=== PATIENT | male | born 1980 | race Caucasian/White ===

== ENCOUNTER 2019-03-10 00:58 | Emergency (ER) | payer SELFPAY ==
[2019-03-10 01:08] VITALS: BP 156/87; PULSE 91; RESP 14; TEMP 37.1; O2SAT 98
== END 2019-03-10 01:21 | disposition left against medical advice (07) ==
PROVIDERS: Emergency Provider Emergency Medicine
DX: Z53.21 Procedure and treatment not carried out due to patient leaving prior to being seen by health care provider (principal)
CPT/HCPCS: 99283

== ENCOUNTER 2021-10-02 06:10 | Emergency (ER) | payer OTHER, SELFPAY ==
[2021-10-02 06:10] VITALS: BP 166/91; PULSE 72; RESP 18; TEMP 36.6; O2SAT 99
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
[2021-10-02] MEDS: LIDO 1%/SOD BICARB 8.4% (10ML) 10 ML SYRINGE INJ (07:16)
[2021-10-02] MEDS: BACITRACIN OINT 0.9 GM PCKT 1 APPLIC TOP (07:16)
--- NOTE | 2021-10-02 07:24 | PC.NURSE ---
A padded metal splint was applied to left 3rd finger after suturing and bacitracin and bandaid appled.DR Villareal noted the splint.
== END 2021-10-02 07:10 | disposition home or self-care (01) ==
PROVIDERS: Emergency Provider Emergency Medicine
DX: S61.213A Laceration without foreign body of left middle finger without damage to nail, initial encounter (principal); M20.022 Boutonniere deformity of left finger(s); W26.0XXA Contact with knife, initial encounter; Y93.G1 Activity, food preparation and clean up; Y99.0 Civilian activity done for income or pay
CPT/HCPCS: 12001; 99282; 99283

== ENCOUNTER 2021-10-05 14:27 | Emergency (ER) | payer OTHER, SELFPAY ==
[2021-10-05 14:34] VITALS: BP 152/80; PULSE 89; RESP 16; TEMP 36.6; O2SAT 100
[2021-10-05] MEDS: TRIMETH/SULFA 160/800 (DS) TABLET 1 TAB PO (15:45)
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
== END 2021-10-05 15:48 | disposition home or self-care (01) ==
PROVIDERS: Emergency Provider Nurse Practitioner Critical Care Medicine
DX: L03.114 Cellulitis of left upper limb (principal)
CPT/HCPCS: 87070; 87075; 87077; 87186; 87205; 99283

== ENCOUNTER → 2021-10-08 15:48 | Outpatient (CLI) | payer OTHER, SELFPAY ==
[2021-10-08 16:43] LABS: Add Manual Diff / Slide Review NO; Basophils Absolute Auto 100 /uL (0-100); Basophils Percent Auto 1.2 % (0-2); Eosinophils Absolute Auto 100 /uL (0-450); Eosinophils Percent Auto 1.6 % (2-4); Hemoglobin 15.6 g/dL (13.5-17.5); Lymphocytes Absolute Auto 3000 /uL (1100-4500); Mean Corpuscular HGB Conc 35.6 % (30-36); Mean Corpuscular Hemoglobin 30.1 PG (26-34); Mean Corpuscular Volume 84.5 fL (80-100); Monocytes Absolute Auto 700 /uL (0-900); Monocytes Percent Auto 8.7 % (3-14); Neutrophils Absolute Auto 4200 /uL (1500-7000); Neutrophils Percent Auto 51.5 % (50-75); Platelet Count 290 X10^3/uL (150-400); Red Cell Distribution Width 12.2 % (11.6-14.8); White Blood Cell Count 8.1 X10^3/uL (4.5-11.0)
== END ==
PROVIDERS: Referring Provider Orthopaedic Surgery; Visit Provider Orthopaedic Surgery
DX: Z01.812 Encounter for preprocedural laboratory examination (principal)
CPT/HCPCS: 36415; 85025

== ENCOUNTER 2024-01-02 18:37 | Emergency (ER) | payer SELFPAY ==
[2024-01-02 18:39] VITALS: BP 154/98; PULSE 62; RESP 16; TEMP 36.2; O2SAT 98; BMI 27.1
--- NOTE | 2024-01-02 18:44 | DI.RAD.S_ITS ---
PROCEDURE: XR KNEE LT 3V INDICATIONS: Right knee pain; remote history of injury TECHNIQUE: 3 views of the knee were acquired. COMPARISON: None. FINDINGS: Bones: No fractures or dislocations. 6.1 x 4.1 cm lucency within the medial femoral condyle. Thinning of the cortex is present. There are areas of with be ossification extending beyond the cortex. Soft tissues: Moderate joint effusion. No suspicious soft tissue calcifications. IMPRESSION: New lytic lesion within the medial femoral condyle as above. No priors are available for comparison. Given areas of extra osseous calcification as described above, small areas of superimposed pathologic fracture within the cortex cannot be definitively excluded. Further evaluation nonemergent basis with MRI and orthopedic consult is recommended. Dictated by: Adalgisa Alanis M.D. on 01/02/2024 at 19:16 Approved by: Adalgisa Alanis M.D. on 01/02/2024 at 19:20
[2024-01-02 19:25] VITALS: PULSE 78
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
== END 2024-01-02 20:40 | disposition home or self-care (01) ==
PROVIDERS: Emergency Provider Emergency Medicine
DX: M89.9 Disorder of bone, unspecified (principal)
CPT/HCPCS: 73562; 99281; 99283

== ENCOUNTER 2024-01-05 14:05 | Emergency (ER) | payer SELFPAY ==
--- NOTE | 2024-01-05 14:32 | DI.MRI.S_ITS ---
PROCEDURE: MR KNEE RT WO/W CON INDICATIONS: right knee lytic lesion on xray 01/02/24, MR per Dr Price TECHNIQUE: Noncontrast sagittal PD fast spin echo and T2 fast spin echo with fat saturation, sagittal 3-D FLASH with fat saturation; coronal T1 spin echo and PD fast spin echo with fat saturation, and axial T1 spin echo and PD fast spin echo with fat saturation through the knee. Post-contrast axial, coronal, and sagittal T1 spin echo with fat saturation through the knee. COMPARISON: [facility], CR, XR KNEE LT 3V, 01/02/2024, 18:49. FINDINGS: Image quality: Excellent. Menisci: The medial and lateral menisci demonstrate normal morphology and internal signal. The meniscal root ligaments appear intact. Cruciate ligaments: The anterior and posterior cruciate ligaments appear intact. Medial structures: The medial collateral ligament appears mildly thickened near its femoral insertion. Visualized portions of the pes anserinus tendons appear normal. No abnormal bursal fluid. Lateral structures: The lateral collateral ligament, long and short heads of the biceps femoris tendon appear intact. The popliteus tendon appears normal. Iliotibial band appears normal. Anterior structures: The quadriceps and patellar tendons appear intact. Patellar alignment is normal. No femoral trochlear dysplasia or ventral trochlear prominence. No edema in the infrapatellar fat pad. Bones and cartilage: Large lobulated and septated T2 hyperintense and T1 I so to hypointense lesion involving medullary space of medial femoral condyle with erosion/destruction involving anterior and medial cortex of medial femoral condyle and lateral extension to the intercondylar region measures up to 5.5 x 6.4 x 7.1 cm in its largest AP, transverse and craniocaudal dimensions series 6, image 19 and series 8 image 28. There is predominantly peripheral and septal enhancement throughout this lesion, with possible enhancing nodule involving medial periphery of this lesion measures 1 cm in size series 16, image 12. There is marrow edema seen in distal femur predominantly involving medial femoral condyle. No pathologic fracture. No other area of marrow signal abnormality or abnormal enhancement. Articulating cartilages are intact. Joint space: There is small to moderate knee joint fluid. There is a Barney's cyst measures 4.5 x 1.5 x 4.8 cm in size. Normal appearing synovial plicae are incidentally noted. No suspicious soft tissue enhancement. IMPRESSION: 1. Large lobulated and septated heterogeneously T2 hyperintense and T1 isointense to hypointense lesion involving medullary space of medial femoral condyle as described above. Destruction of anterior and medial cortex of medial femoral condyle is noted. Predominantly peripheral and septal contrast enhancement is noted within this lesion with suggestion of a 1 cm enhancing nodule in medial periphery of this mass. Finding is suggestive of is a large cystic mass of indeterminate etiology. No pathologic fracture. No other area of abnormal intraosseous enhancement. 2. No evidence of internal derangement. 3. Small to moderate joint effusion and a Barney's cyst as above. No gross loose bodies. No enhancing soft tissue mass is seen. Dictated by: Pj Maloney M.D. on 01/05/2024 at 16:16 Approved by: Pj Maloney M.D. on 01/05/2024 at 16:28
[2024-01-05 14:35] VITALS: BP 152/100; PULSE 78; RESP 17; TEMP 36.6; O2SAT 98; BMI 26.4
--- NOTE | 2024-01-05 16:12 | ED.LOWEXIN ---
HPI - Extremity Injury (Lower) <Rachel Vasquez PA-C - Last Filed: 01/05/24 18:12> General Chief Complaint: Extremity Injury, Lower Stated Complaint: Knee injury follow-up Time Seen by Provider: 01/05/24 14:06 Source: patient Mode of arrival: Ambulatory History of Present Illness HPI Narrative: Patient is a 43-year-old man with history of Hepatitis C who presents with acute on chronic right knee pain. He was seen in the emergency room on 01/02/2024 where x-ray was done that showed a 6 x 4 cm lucency within the medial femoral condyle. Dr. Chavez spoke with Dr. Price on 01/01 who recommended MRI with and without contrast for further evaluation. It was after hours and no MRI was available. He was referred to Orthopedics for further assessment. He did follow up with Orthopedics but because he has no insurance, was unable to obtain the MRI and came back to the ER today. Patient reports no new symptoms since seen on 01/01. Related Data Home Medications Medication Instructions Recorded Confirmed ibuprofen 600 mg tablet 600 mg PO Q6H PRN Pain (Scale 01/05/24 01/05/24 Score 7-10) Allergies Allergy/AdvReac Type Severity Reaction Status Date / Time No Known Drug Allergies Allergy Verified 01/05/24 14:39 Review of Systems <Rachel Vasquez PA-C - Last Filed: 01/05/24 18:12> Review of Systems ROS Unobtainable: All systems reviewed & are unremarkable except as noted in HPI and below Patient History <Rachel Vasquez PA-C - Last Filed: 01/05/24 18:12> Medical History Hepatitis C Cellulitis of right arm Burn of right upper extremity Social History Smoking Status: Unknown if ever smoked Smoking Status: Unknown if ever smoked alcohol intake frequency: 0-2 drinks per day Substance Use Type: marijuana Exam <Rachel Vasquez PA-C - Last Filed: 01/05/24 18:12> Narrative Exam Narrative: GENERAL: 43 year old patient appears stated age. Well-developed patient, in no acute distress. NEURO: AOx3. HEAD: Atraumatic. Normocephalic. EYES: Pupils equal round and reactive. Extraocular motions intact. No scleral icterus. No injection or drainage. ENT: Nose without bleeding or purulent drainage. RESPIRATORY: No increased work of breathing EXTREMITIES: Mild tenderness to the medial right knee. No significant hip pain. Neurovascularly intact. SKIN: No rash or erythema of visible areas Initial Vital Signs Initial Vital Signs: Vital Signs Temperature 98 F 01/05/24 14:35 Pulse Rate 78 01/05/24 14:35 Respiratory Rate 17 01/05/24 14:35 Blood Pressure 152/100 H 01/05/24 14:35 Pulse Oximetry 98 01/05/24 14:35 Oxygen Delivery Method Room Air 01/05/24 14:35 <Chriss Villareal DO - Last Filed: 01/05/24 18:20> Initial Vital Signs Initial Vital Signs: Vital Signs Temperature 98 F 01/05/24 14:35 Pulse Rate 78 01/05/24 14:35 Respiratory Rate 17 01/05/24 14:35 Blood Pressure 152/100 H 01/05/24 14:35 Pulse Oximetry 98 01/05/24 14:35 Oxygen Delivery Method Room Air 01/05/24 14:35 Course <Rachel Vasquez PA-C - Last Filed: 01/05/24 18:12> Orders Ordered: ED Orders 01/05/24 14:32 MR knee RT wo/w con Stat 01/05/24 14:44 Consult to [facility] Placement Specialist Stat Consultations Consultation #1: Spoke with Dr. Loo who recommends having musculoskeletal radiologist look at MRI images and advised. This is done as outpatient. Have patient f/u with ortho clinic. Vital Signs Vital signs: Vital Signs - 8 hr 01/05/24 14:35 01/05/24 17:02 Temperature 98 F Pulse Rate 78 66 Respiratory Rate 17 16 Blood Pressure 152/100 H 155/93 H Pulse Oximetry 98 100 Oxygen Delivery Method Room Air Room Air <Chriss Villareal DO - Last Filed: 01/05/24 18:20> Orders Ordered: ED Orders 01/05/24 14:32 MR knee RT wo/w con Stat 01/05/24 14:44 Consult to [facility] [place] [place] Placement Specialist Stat Vital Signs Vital signs: Vital Signs - 8 hr 01/05/24 14:35 01/05/24 17:02 Temperature 98 F Pulse Rate 78 66 Respiratory Rate 17 16 Blood Pressure 152/100 H 155/93 H Pulse Oximetry 98 100 Oxygen Delivery Method Room Air Room Air MDM - Extremity Injury (Lower) <Rachel Vasquez PA-C - Last Filed: 01/05/24 18:12> Imaging Data MRI knee: Radiologist's Impression: PROCEDURE: MR KNEE RT WO/W CON INDICATIONS: right knee lytic lesion on xray 01/02/24, MR per Dr Price TECHNIQUE: Noncontrast sagittal PD fast spin echo and T2 fast spin echo with fat saturation, sagittal 3-D FLASH with fat saturation; coronal T1 spin echo and PD fast spin echo with fat saturation, and axial T1 spin echo and PD fast spin echo with fat saturation through the knee. Post-contrast axial, coronal, and sagittal T1 spin echo with fat saturation through the knee. COMPARISON: [facility], CR, XR KNEE LT 3V, 01/02/2024, 18:49. FINDINGS: Image quality: Excellent. Menisci: The medial and lateral menisci demonstrate normal morphology and internal signal. The meniscal root ligaments appear intact. Cruciate ligaments: The anterior and posterior cruciate ligaments appear intact. Medial structures: The medial collateral ligament appears mildly thickened near its femoral insertion. Visualized portions of the pes anserinus tendons appear normal. No abnormal bursal fluid. Lateral structures: The lateral collateral ligament, long and short heads of the biceps femoris tendon appear intact. The popliteus tendon appears normal. Iliotibial band appears normal. Anterior structures: The quadriceps and patellar tendons appear intact. Patellar alignment is normal. No femoral trochlear dysplasia or ventral trochlear prominence. No edema in the infrapatellar fat pad. Bones and cartilage: Large lobulated and septated T2 hyperintense and T1 I so to hypointense lesion involving medullary space of medial femoral condyle with erosion/destruction involving anterior and medial cortex of medial femoral condyle and lateral extension to the intercondylar region measures up to 5.5 x 6.4 x 7.1 cm in its largest AP, transverse and craniocaudal dimensions series 6, image 19 and series 8 image 28. There is predominantly peripheral and septal enhancement throughout this lesion, with possible enhancing nodule involving medial periphery of this lesion measures 1 cm in size series 16, image 12. There is marrow edema seen in distal femur predominantly involving medial femoral condyle. No pathologic fracture. No other area of marrow signal abnormality or abnormal enhancement. Articulating cartilages are intact. Joint space: There is small to moderate knee joint fluid. There is a Barney's cyst measures 4.5 x 1.5 x 4.8 cm in size. Normal appearing synovial plicae are incidentally noted. No suspicious soft tissue enhancement. IMPRESSION: 1. Large lobulated and septated heterogeneously T2 hyperintense and T1 isointense to hypointense lesion involving medullary space of medial femoral condyle as described above. Destruction of anterior and medial cortex of medial femoral condyle is noted. Predominantly peripheral and septal contrast enhancement is noted within this lesion with suggestion of a 1 cm enhancing nodule in medial periphery of this mass. Finding is suggestive of is a large cystic mass of indeterminate etiology. No pathologic fracture. No other area of abnormal intraosseous enhancement. 2. No evidence of internal derangement. 3. Small to moderate joint effusion and a Barney's cyst as above. No gross loose bodies. No enhancing soft tissue mass is seen. Dictated by: Pj Maloney M.D. on 01/05/2024 at 16:16 Approved by: Pj Maloney M.D. on 01/05/2024 at 16:28 MDM Narrative Medical decision making narrative: Multiple etiologies for patient's symptoms considered including, but not limited to: Bone cyst versus malignancy Patient unable to access MRI through outpatient clinic and return to the emergency room for assessment today. Discussed case with Dr. Villareal who agrees that we should obtain MRI. MRI obtained. I spoke with Dr. Loo regarding the results; he recommended that the ortho clinic send the MRI to for specialist interpretation and have patient follow up in ortho clinic. There are no specific precautions per Dr. Loo. Discussed this plan with the patient. Patient was also seen by PAN SHOVER while in the emergency room to discuss options for obtaining health insurance. Patient states understanding of the importance of obtaining follow-up. PAN SHOVER we will check in with him tomorrow regarding insurance. Patient reports overall his pain is a little better recently then over the past several months. He does not need any pain medications. Work note given. Patient's symptoms improved over duration of stay with above-stated therapies. Findings and discharge diagnosis discussed with patient/family followed by verbalization of understanding Return precautions discussed with patient/family whom verbalize understanding of diagnosis and plan Discharge Plan Departure Patient Disposition: Home Clinical Impression: Lytic bone lesion of right femur Instructions: DI for Knee Pain Activity Restrictions/Additional Instructions: The radiology report for your knee MRI today is relatively inconclusive. The orthopedist wants to send the images to the [facility] so specialist radiologistcan give their opinion prior to deciding the next steps. You should call [facility] to schedule an appointment to follow up with them regarding the interpretation of the MRI results. When you call, you should explain the situation to the entry level receptionist and say that you want to come in after they have more information about the MRI results. You can apply for insurance through the state via Internet or calling them. They are quite helpful on the phone and can help you answer your questions and get she signed up. Once you get insurance, you can call the hospital to set up a primary care provider who can help navigate the situation as well. *What to do: *Please continue to take your regular medications as directed. [ ] New medication prescriptions sent to your pharmacy: [ ] [ ] New medication written as a paper prescription [x] No new medications given *Please follow up with your primary care provider in 2-3 days, call for an appointment. Let them know you were seen in the Emergency Department and that we ask that you be seen in follow up. We will electronically transmit a record of today's note if your PCP is in our system *If you do not have a primary care provider please contact the [facility] Resource line at [phone]. They will ask some questions about your medical history and help get you set up with a doctor in the community. *Return to Emergency Department if you should have any new, worsening or concerning symptoms, such as [fever greater than 101 F, shaking chills, worsening pain, persistent vomiting or other concerning symptoms]. Prescriptions: No Action ibuprofen 600 mg Tablet 600 mg PO Q6H PRN (Reason: Pain (Scale Score 7-10)) Referrals: [facility] [Provider Group] Miscellaneous,Doctor, MD [Primary Care Provider] - Stand Alone Forms: Patient Portal/API, Work Release Note ED Sign-out <Chriss Villareal DO - Last Filed: 01/05/24 18:20> [facility]: Dr Villareal Co-Sign Statement: I was available for consultation during this patient's emergency department visit. This chart is signed by myself for administrative purposes only. I did not have direct contact with this patient during this visit. They were seen independently by the APC.
[2024-01-05 17:02] VITALS: BP 155/93; PULSE 66; RESP 16; O2SAT 100
--- NOTE | 2024-01-05 17:06 | CM.SWNOTE ---
Addendum entered by Madeline Mcclain 01/11/24 19:09: BAKER BENCH calls patient regarding insurance and patient states that he signed up for Medicaid Coordinated care. Patient endorses [facility] is reviewing his scans and he is waiting to hear back from them. BAKER BENCH informs registration of patient's new insurance to add to patient's EMR. LA Mendoza Addendum entered by Madeline Mcclain 01/06/24 17:04: BAKER BENCH calls patient for follow up call regarding insurance. Patient states he did not set up insurance yesterday and plans to do so tomorrow. BAKER BENCH arranges to call patient on Tuesday to check in on his insurance status and encourages patient to call ortho on Tuesday as well. Plan: patient to f/u with patient further on Tuesday via phone call. LA Mendoza Original Note: ED BAKER BENCH Note Patient is 43 y/o male who presents to ED today due to concern for chronic knee pain, patient had similar presentation to ED on 01/02/24 and was told to f/u with ortho because patient could not get in for MRI from ED on that day. Patient does not have PCP or insurance. It is reported that patient went to ortho and they stated that the MRI would be quite a significant out of pocket expense so patient returned to ED. ED provider orders MRI for patient. BAKER BENCH enters room to meet with patient, patient endorses that he does not have insurance and does not recall the last time he's had insurance or a PCP. Patient endorses he has not made a lot of money this year and will be starting a new job soon. BAKER BENCH encourages patient to apply for state insurance. Patient attempts to do so in ED but patient endorses issues with his phone. Patient endorses plan to apply for insurance this afternoon. Patient endorses he has good supports, he lives in [place] and is hopeful that his new job will have insurance. BAKER BENCH offers to set patient up with PCP and patient denies concern of need for assistance with this. BAKER BENCH encourages patient to fill out jean marie care application and to apply for insurance. BAKER BENCH endorses that BAKER BENCH can call patient tomorrow to f/u on patient's progress in signing up for insurance. Per patient's MRI results today, ED provider recommends that patient f/u with [facility] to schedule appt. Patient's MRI results were inconclusive and being sent to for further review. Plan: patient to d/c to home upon medical clearance. BAKER BENCH to f/u with patient via phone tomorrow regarding patient's applying for insurance and seeking ortho f/u. LA Mendoza
== END 2024-01-05 17:04 | disposition home or self-care (01) ==
PROVIDERS: Emergency Provider Physician Assistant
DX: M89.9 Disorder of bone, unspecified (principal); M25.461 Effusion, right knee
CPT/HCPCS: 73723; 99281; 99283; A9579

== ENCOUNTER 2024-02-09 05:21 | Emergency (ER) | payer OTHER, MEDICAID, SELFPAY ==
[2024-02-09] VITALS (10 sets, daily range): BP systolic 158–179; BP diastolic 95–107; PULSE 59–85; RESP 9–15; TEMP 36.3; O2SAT 97–100; BMI 27.1
--- NOTE | 2024-02-09 05:42 | ED.GENADULT ---
HPI - General Adult <Chikis Guerrero MD - Last Filed: 02/10/24 03:29> General Chief complaint: Dizziness Stated complaint: dizzy spell Time Seen by Provider: 02/09/24 05:41 History of Present Illness HPI narrative: 43-year-old gentleman with a history of hepatitis-C, alcohol use disorder recently diagnosed with a lytic/cystic lesion in the right medial epicondyle of his femur concerning for a cancer versus cystic lesion comes in with episodes of intermittent vertigo this morning. He was seen a month ago with complaints of acute on chronic knee pain increasing limping and fullness over the medial aspect of his right knee. X-rays showed significant abnormality, he was referred to orthopedics eventually came back to the ER for an MRI which confirms abnormalities. Apparently his case was referred to Manjula ordaz, orthopedic oncology and he was told he would ?hear from them?. This was 3 weeks ago. He is continuing to work he notes that he will gain and lose weight fairly rapidly but depending on how much alcohol he is drinking and how well he is eating, he notes that he is relatively active otherwise. He is employed full-time currently. He describes relatively poor sleep on the evening of February 06 related to knee pain. On the day of the he states that he had a number of ?spacey? episodes with a sensation of time loss multiple times throughout the day. Who was concerning enough he mentioned it to coworkers who did not notice abnormalities. He notes that he did drink less on the day of the . States that he slept fairly well last night when his alarm clock when off at 4:30 a.m. he rolled over had an episode of significant vertigo that seemed to resolve quickly. He then had episodes when he stood up, as he looked down as he lift up see looked down the street while he was walking to work. None of these were persistent and he has not currently complaining of any evoked vertigo. He is concerned that he may be having stroke or that there may be more to the probable cancer diagnosis involving the right femur. He does not carry a diagnosis of hypertension but notes that his blood pressures are frequently high when he is in the emergency department. He does have a blood pressure monitor at home. He has not reporting headaches, visual changes, other focal neurologic concerns. No hearing loss or tinnitus appreciated. No chest pain, palpitations, orthopnea, dyspnea, abdominal pain, nausea, vomiting or diarrhea. Related Data Home Medications Medication Instructions Recorded Confirmed ibuprofen 600 mg tablet 600 mg PO Q6H PRN Pain (Scale 01/05/24 01/05/24 Score 7-10) Allergies Allergy/AdvReac Type Severity Reaction Status Date / Time No Known Drug Allergies Allergy Verified 01/05/24 14:39 Review of Systems <Chikis Guerrero MD - Last Filed: 02/10/24 03:29> Review of Systems Narrative: Pertinent positive and negative findings as per HPI Patient History <Chikis Guerrero MD - Last Filed: 02/10/24 03:29> Medical History (Updated 02/09/24 @ 11:18 by Chriss Villareal DO) Lytic bone lesion of right femur Hepatitis C Cellulitis of right arm Burn of right upper extremity Social History Smoking Status: Unknown if ever smoked Smoking Status: Unknown if ever smoked alcohol intake frequency: 0-2 drinks per day Substance Use Type: marijuana Exam <Chikis Guerrero MD - Last Filed: 02/10/24 03:29> Narrative Exam Narrative: General: Healthy appearing, in no acute distress. Able to give a complete and coherent history. Well-nourished well-developed HEENT: Moist mucous membranes, normal sclera with reactive pupils, no provoked nystagmus, no current vertigo. Neck: No cervical adenopathy Respiratory: Lungs are clear to auscultation, no wheezing no rales no rhonchi. Full and symmetrical air movement Cardiac: Regular rate and rhythm no murmurs no bruits Abdomen: Soft, nontender, good bowel tones, no flank pain Skin: Warm and dry, no rashes Neurologic: Grossly neurologically intact with no obvious asymmetries or abnormalities. NIH score of 0, no tremor with CIWA score of 0 Extremities: No trauma, bony fullness appreciated the medial right femoral epicondyle Psych: Cooperative, appropriate insight and affect Initial Vital Signs Initial Vital Signs: Vital Signs Pulse Rate 77 02/09/24 05:29 Pulse Oximetry 100 02/09/24 05:29 <Chriss Villareal DO - Last Filed: 02/09/24 14:11> Initial Vital Signs Initial Vital Signs: Vital Signs Pulse Rate 77 02/09/24 05:29 Pulse Oximetry 100 02/09/24 05:29 Course <Chikis Guerrero MD - Last Filed: 02/10/24 03:29> Orders Ordered: ED Orders 02/09/24 05:30 EKG-12 Lead Stat 02/09/24 05:35 Complete Blood Count AUTO DIFF Stat Comprehensive Metabolic Panel Stat 02/09/24 06:23 CT head/brain wo con Stat 02/09/24 09:03 [facility] Vital Signs Vital signs: Vital Signs - 8 hr 02/09/24 06:30 02/09/24 06:30 02/09/24 06:36 Pulse Rate 67 69 Respiratory Rate 12 Blood Pressure 168/97 H Pulse Oximetry 100 100 Oxygen Delivery Method 02/09/24 06:36 02/09/24 07:00 02/09/24 07:00 Pulse Rate 64 Respiratory Rate 9 L Blood Pressure 170/107 H 173/99 H Pulse Oximetry 100 Oxygen Delivery Method 02/09/24 07:30 02/09/24 07:30 02/09/24 08:00 Pulse Rate 59 L Respiratory Rate 13 Blood Pressure 161/99 H 158/105 H Pulse Oximetry 99 Oxygen Delivery Method 02/09/24 08:00 02/09/24 10:48 Pulse Rate 62 65 Respiratory Rate 13 12 Blood Pressure 179/107 H Pulse Oximetry 99 97 Oxygen Delivery Method Room Air <Chriss Villareal DO - Last Filed: 02/09/24 14:11> Orders Ordered: ED Orders 02/09/24 05:30 EKG-12 Lead Stat 02/09/24 05:35 Complete Blood Count AUTO DIFF Stat Comprehensive Metabolic Panel Stat 02/09/24 06:23 CT head/brain wo con Stat 02/09/24 09:[address] [facility] Stat Vital Signs Vital signs: Vital Signs - 8 hr 02/09/24 06:30 02/09/24 06:30 02/09/24 06:36 Pulse Rate 67 69 Respiratory Rate 12 Blood Pressure 168/97 H Pulse Oximetry 100 100 Oxygen Delivery Method 02/09/24 06:36 02/09/24 07:00 02/09/24 07:00 Pulse Rate 64 Respiratory Rate 9 L Blood Pressure 170/107 H 173/99 H Pulse Oximetry 100 Oxygen Delivery Method 02/09/24 07:30 02/09/24 07:30 02/09/24 08:00 Pulse Rate 59 L Respiratory Rate 13 Blood Pressure 161/99 H 158/105 H Pulse Oximetry 99 Oxygen Delivery Method 02/09/24 08:00 02/09/24 10:48 Pulse Rate 62 65 Respiratory Rate 13 12 Blood Pressure 179/107 H Pulse Oximetry 99 97 Oxygen Delivery Method Room Air Medical Decision Making <Chikis Guerrero MD - Last Filed: 02/10/24 03:29> Lab Data 02/09/24 05:35 02/09/24 05:35 Labs: Lab Results 02/09/24 Range/Units 05:35 WBC 7.4 (4.5-11.0) X10^3/uL RBC 4.96 (4.5-5.9) X10^6/uL Hgb 15.2 (13.5-17.5) g/dL Hct 43.4 (41-53) % MCV 87.5 (80-100) fL MCH 30.6 (26-34) PG MCHC 35.0 (30-36) % RDW 13.0 (11.6-14.8) % Plt Count 265 (150-400) X10^3/uL Neut % (Auto) 45.2 L (50-75) % Lymph % (Auto) 39.5 (25-40) % Kidder % (Auto) 12.6 (3-14) % Eos % (Auto) 1.5 L (2-4) % Baso % (Auto) 1.2 (0-2) % Neut # (Auto) 3400 (9314-7612) /uL Lymph # (Auto) 2900 (6138-6048) /uL Kidder # (Auto) 900 (0-900) /uL Eos # (Auto) 100 (0-450) /uL Baso # (Auto) 100 (0-100) /uL Sodium 137 (137-145) mmol/L Potassium 3.8 (3.4-5.1) mmol/L Chloride 107 (98-107) mmol/L Carbon Dioxide 23 (22-32) mmol/L BUN 14 (9-20) mg/dL Creatinine 0.86 (0.66-1.25) mg/dL Estimated GFR > 60 (>60) mL/min BUN/Creatinine Ratio 16.3 (6-22) Glucose 102 H (70-100) mg/dL Calcium 9.1 (8.4-10.2) mg/dL Total Bilirubin 0.9 (0.2-1.3) mg/dL AST 40 (17-59) IU/L ALT 42 (<50) IU/L Alkaline Phosphatase 69 (38-126) U/L Total Protein 7.6 (6.3-8.2) g/dL Albumin 4.6 (3.5-5.0) g/dL Globulin 3.0 (1.7-4.1) g/dL Albumin/Globulin Ratio 1.5 (1.0-2.8) MDM Narrative Medical decision making narrative: CC: Intermittent episodes of vertigo today Complicating co-morbidities: Recently diagnosed right femur abnormality waiting to hear from orthopedic oncology regarding follow up Data collected from: patient Social determinants of health that may influence the patients condition: Recently acquired state insurance, alcohol use disorder, regular use marijuana, no IV drugs or narcotics Medical records reviewed: ER and urgent care notes regarding his knee evaluation from December Differential considered: Benign positional vertigo, brain tumor, alcohol withdrawal, viral syndrome Exam documented above, pertinent findings include: Exam neurologically is benign with no evidence of alcohol withdrawal, no reproducible nystagmus. Significantly hypertensive. Fullness medial aspect of the right knee is again appreciated Lab Test results independently reviewed as above. Pertinent findings: Independently reviewed EKG: Imaging studies independently reviewed: Consultations: Treatments: Re-evaluations: Discussion: <Chriss Villareal DO - Last Filed: 02/09/24 14:11> Lab Data Lab results reviewed: Yes I reviewed the patient's lab results. Labs: Lab Results 02/09/24 Range/Units 05:35 WBC 7.4 (4.5-11.0) X10^3/uL RBC 4.96 (4.5-5.9) X10^6/uL Hgb 15.2 (13.5-17.5) g/dL Hct 43.4 (41-53) % MCV 87.5 (80-100) fL MCH 30.6 (26-34) PG MCHC 35.0 (30-36) % RDW 13.0 (11.6-14.8) % Plt Count 265 (150-400) X10^3/uL Neut % (Auto) 45.2 L (50-75) % Lymph % (Auto) 39.5 (25-40) % Kidder % (Auto) 12.6 (3-14) % Eos % (Auto) 1.5 L (2-4) % Baso % (Auto) 1.2 (0-2) % Neut # (Auto) 3400 (1319-7183) /uL Lymph # (Auto) 2900 (0322-3542) /uL Kidder # (Auto) 900 (0-900) /uL Eos # (Auto) 100 (0-450) /uL Baso # (Auto) 100 (0-100) /uL Sodium 137 (137-145) mmol/L Potassium 3.8 (3.4-5.1) mmol/L Chloride 107 (98-107) mmol/L Carbon Dioxide 23 (22-32) mmol/L BUN 14 (9-20) mg/dL Creatinine 0.86 (0.66-1.25) mg/dL Estimated GFR > 60 (>60) mL/min BUN/Creatinine Ratio 16.3 (6-22) Glucose 102 H (70-100) mg/dL Calcium 9.1 (8.4-10.2) mg/dL Total Bilirubin 0.9 (0.2-1.3) mg/dL AST 40 (17-59) IU/L ALT 42 (<50) IU/L Alkaline Phosphatase 69 (38-126) U/L Total Protein 7.6 (6.3-8.2) g/dL Albumin 4.6 (3.5-5.0) g/dL Globulin 3.0 (1.7-4.1) g/dL Albumin/Globulin Ratio 1.5 (1.0-2.8) Imaging Data CT scan - head: Radiologist's Impression: PROCEDURE: CT HEAD/BRAIN WO CON INDICATIONS: Acute recurrent episodes of vertigo this morning TECHNIQUE: Noncontrast 4.5 mm thick angled axial sections acquired from the foramen magnum to the vertex, with coronal and sagittal reformats. For radiation dose reduction, the following was used: automated exposure control, adjustment of mA and/or kV according to patient size. COMPARISON: None. FINDINGS: Image quality: Diagnostic. CSF spaces: Basal cisterns are patent. No extra-axial fluid collections. Ventricles are normal in size and shape. Brain: No midline shift. No intracranial masses or hemorrhage. Hamilton-white matter interface is normal. Skull and face: Calvarium and visualized facial bones are intact, without suspicious lesions. Sinuses: Visualized sinuses and mastoids are clear. IMPRESSION: No evidence acute intracranial process. Comment: Final report is concordant with preliminary interpretation provided by [facility]. MDM Narrative Medical decision making narrative: CC: Intermittent episodes of vertigo today Complicating co-morbidities: Recently diagnosed right femur abnormality waiting to hear from orthopedic oncology regarding follow up Data collected from: patient Social determinants of health that may influence the patients condition: Recently acquired state insurance, alcohol use disorder, regular use marijuana, no IV drugs or narcotics Medical records reviewed: ER and urgent care notes regarding his knee evaluation from December Differential considered: Benign positional vertigo, brain tumor, alcohol withdrawal, viral syndrome Exam documented above, pertinent findings include: Exam neurologically is benign with no evidence of alcohol withdrawal, no reproducible nystagmus. Significantly hypertensive. Fullness medial aspect of the right knee is again appreciated Lab Test results independently reviewed as above. Pertinent findings: Independently reviewed EKG: Imaging studies independently reviewed: Consultations: Treatments: Re-evaluations: Discussion: Dr villareal: Received turned over. Review patient's history and physical and workup up to this point. Patient is now asymptomatic with regard to his dizziness. Head CT is unremarkable. Suspect a peripheral cause. He was kept here in the emergency department in order to continue to help him with the logistics of following up with the lesion in his right femur. There was some concern about a malignancy in this area. We contacted the local orthopedic department who stated that his case has been referred to Manj[facility] ordaz. We contacted Manjula ordaz who stated that the patient needs a referral from a primary care provider. The patient does not have a primary care provider. He was advised to stay in order to talk with social work in order help him find a primary doctor. Patient states he did not want to stay. When I went to talk with him he agreed to stay for little while longer however prior to being evaluated by social work the patient did elope. Discharge Plan Departure Patient Disposition: Left Against Medical Advice Clinical Impression: Dizziness Prescriptions: No Action ibuprofen 600 mg Tablet 600 mg PO Q6H PRN (Reason: Pain (Scale Score 7-10)) Referrals: Miscellaneous,[facility] [Primary Care Provider] - Stand Alone Forms: Patient Portal/API, Against Medical Advice
--- NOTE | 2024-02-09 06:23 | DI.CT.S_ITS ---
PROCEDURE: CT HEAD/BRAIN WO CON INDICATIONS: Acute recurrent episodes of vertigo this morning TECHNIQUE: Noncontrast 4.5 mm thick angled axial sections acquired from the foramen magnum to the vertex, with coronal and sagittal reformats. For radiation dose reduction, the following was used: automated exposure control, adjustment of mA and/or kV according to patient size. COMPARISON: None. FINDINGS: Image quality: Diagnostic. CSF spaces: Basal cisterns are patent. No extra-axial fluid collections. Ventricles are normal in size and shape. Brain: No midline shift. No intracranial masses or hemorrhage. Hamilton-white matter interface is normal. Skull and face: Calvarium and visualized facial bones are intact, without suspicious lesions. Sinuses: Visualized sinuses and mastoids are clear. IMPRESSION: No evidence acute intracranial process. Comment: Final report is concordant with preliminary interpretation provided by [facility]. Dictated by: Lopez Camejo M.D. on 02/09/2024 at 7:48 Approved by: Lopez Camejo M.D. on 02/09/2024 at 7:49
[2024-02-09 06:39] LABS: Add Manual Diff / Slide Review NO; Basophils Absolute Auto 100 /uL (0-100); Basophils Percent Auto 1.2 % (0-2); Eosinophils Absolute Auto 100 /uL (0-450); Eosinophils Percent Auto 1.5 % (2-4); Hematocrit 43.4 % (41-53); Hemoglobin 15.2 g/dL (13.5-17.5); Lymphocytes Absolute Auto 2900 /uL (1100-4500); Lymphocytes Percent Auto 39.5 % (25-40); Mean Corpuscular Hemoglobin 30.6 PG (26-34); Mean Corpuscular Volume 87.5 fL (80-100); Monocytes Absolute Auto 900 /uL (0-900); Monocytes Percent Auto 12.6 % (3-14); Neutrophils Absolute Auto 3400 /uL (1500-7000); Neutrophils Percent Auto 45.2 % (50-75); Platelet Count 265 X10^3/uL (150-400); Red Blood Cell Count 4.96 X10^6/uL (4.5-5.9); White Blood Cell Count 7.4 X10^3/uL (4.5-11.0)
[2024-02-09 06:40] LABS: Alanine Aminotransferase 42 IU/L (<50); Albumin 4.6 g/dL (3.5-5.0); Albumin Globulin Ratio 1.5 (1.0-2.8); Alkaline Phosphatase 69 U/L (38-126); Aspartate Aminotransferase 40 IU/L (17-59); BUN Creatinine Ratio 16.3 (6-22); Bilirubin Total 0.9 mg/dL (0.2-1.3); Blood Urea Nitrogen 14 mg/dL (9-20); Calcium 9.1 mg/dL (8.4-10.2); Carbon Dioxide 23 mmol/L (22-32); Chloride 107 mmol/L (98-107); Estimated Glomerular Filt Rate > 60 mL/min (>60); Glucose 102 mg/dL (70-100); HEMOLYSIS < 15 (0-50); Potassium 3.8 mmol/L (3.4-5.1); Sodium 137 mmol/L (137-145); Total Protein 7.6 g/dL (6.3-8.2)
--- NOTE | 2024-02-09 07:51 | PC.NURSE ---
Pt states that he is feeling better and denies any dizziness/lightheadedness. A&Ox4.
== END 2024-02-09 11:38 | disposition left against medical advice (07) ==
PROVIDERS: Emergency Medicine; Emergency Provider Emergency Medicine
DX: R42 Dizziness and giddiness (principal); R07.9 Chest pain, unspecified
CPT/HCPCS: 70450; 80053; 85025; 93005; 99281; 99284

== ENCOUNTER → 2024-03-05 08:25 | Outpatient (CLI) | payer OTHER, MEDICAID, SELFPAY ==
[2024-03-05 09:13] LABS: Add Manual Diff / Slide Review NO; Basophils Absolute Auto 100 /uL (0-100); Basophils Percent Auto 1.4 % (0-2); Eosinophils Absolute Auto 100 /uL (0-450); Eosinophils Percent Auto 0.9 % (2-4); Hematocrit 43.5 % (41-53); Hemoglobin 15.1 g/dL (13.5-17.5); Lymphocytes Absolute Auto 2000 /uL (1100-4500); Lymphocytes Percent Auto 33.1 % (25-40); Mean Corpuscular HGB Conc 34.8 % (30-36); Mean Corpuscular Hemoglobin 30.2 PG (26-34); Mean Corpuscular Volume 86.9 fL (80-100); Monocytes Absolute Auto 500 /uL (0-900); Monocytes Percent Auto 8.6 % (3-14); Neutrophils Absolute Auto 3400 /uL (1500-7000); Platelet Count 295 X10^3/uL (150-400); Red Cell Distribution Width 12.4 % (11.6-14.8); White Blood Cell Count 6.1 X10^3/uL (4.5-11.0)
[2024-03-05 09:27] LABS: INR 0.9 (0.9-1.3); Prothrombin Time 10.3 SECONDS (9.4-12.5)
[2024-03-05 09:30] LABS: PTT Partial Thromboplastin Tim 36 SECONDS (25.1-36.5)
[2024-03-05 09:57] LABS: TSH w/ Reflex to FT4 3.35 uIU/mL (0.47-4.68)
[2024-03-05 16:21] LABS: Hepatitis B Surface Antigen NEGATIVE s/c (NEGATIVE)
[2024-03-06 04:22] LABS: Cholesterol HDL Ratio 4.4 ratio (0.0-5.0); Cholesterol,Total 219 mg/dL (100-199); HDL Cholesterol 50 mg/dL (>39); LDL Cholesterol Cal 121 mg/dL (0-99); Triglycerides 277 mg/dL (0-149); VLDL Cholesterol Cal 48 mg/dL (5-40)
[2024-03-06 06:22] LABS: Hepatitis B Core AB w/Reflex Negative (Negative); Hepatitis B Surf AB Quant 34.7 mIU/mL (Immunity>9.9)
[2024-08-02 15:26] LABS: HIV 1 & 2 Ab/Ag 4th Gen Combo NEGATIVE (NEGATIVE)
== END ==
PROVIDERS: PCP Nurse Practitioner Family; Referring Provider Nurse Practitioner Family; Visit Provider Nurse Practitioner Family
DX: Z13.220 Encounter for screening for lipoid disorders (principal); B19.20 Unspecified viral hepatitis C without hepatic coma; I10 Essential (primary) hypertension
CPT/HCPCS: 36415; 80061; 84443; 85025; 85610; 85730; 86704; 86706; 87340; 87389; 87522

== ENCOUNTER 2024-04-15 16:28 | Emergency (ER) | payer OTHER, SELFPAY ==
[2024-04-15 16:43] VITALS: BP 132/74; PULSE 90; RESP 18; TEMP 37; O2SAT 100; BMI 27.1
--- NOTE | 2024-04-15 16:55 | DI.RAD.S_ITS ---
PROCEDURE: XR FEMUR RT MIN 2V INDICATIONS: recent tumor removal off femur, BECKY drainage not drainaing TECHNIQUE: 2 views of the femur were acquired. COMPARISON: None. FINDINGS: Bones: Postsurgical changes are seen from distal femoral resection with modular right knee arthroplasty. Hardware components appear to be intact. No acute osseous fracture. Soft tissues: Postsurgical changes are seen surrounding the knee. A percutaneous drain is seen projecting posterior medial to the knee. Nonspecific edema is seen in the surrounding soft tissues. IMPRESSION: Postsurgical changes from distal femoral resection and modular knee arthroplasty. Nonspecific soft tissue edema is present. Approved by: Mann Ponce M.D. on 04/15/2024 at 17:43
[2024-04-15] MEDS: OXYCODONE IR 5 MG TABLET PO (17:05)
[2024-04-15] MEDS: ACETAMINOPHEN 325 MG TABLET 650 MG PO (17:05)
[2024-04-15 20:33] VITALS: PULSE 81; O2SAT 98
[2024-04-15 20:34] VITALS: BP 141/94; PULSE 76; O2SAT 100
[2024-04-15 21:00] VITALS: BP 143/87; PULSE 88; O2SAT 100
--- NOTE | 2024-04-15 21:12 | ED.EXTPRO ---
HPI - Extremity Problem General Chief complaint: Extremity Problem,Nontraumatic Stated complaint: surgical drain malfunction Time Seen by Provider: 04/15/24 20:32 Source: patient Mode of arrival: Ambulatory History of Present Illness HPI Narrative: 43-year-old male presents for evaluation of his BECKY drain. 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 States that he is getting approximately 150 mL of fluid from his BECKY drain daily. Earlier today he felt a tug on his drain and since then it has not been draining. Patient has reported follow up with his oncology team in 2 days, but when he called with the drain problem they referred him to the ER for evaluation. Related Data Allergies Allergy/AdvReac Type Severity Reaction Status Date / Time No Known Drug Allergies Allergy Verified 04/15/24 16:47 Patient History Social History Smoking Status: Former smoker Smoking Status: Former smoker alcohol intake frequency: 0-2 drinks per day Substance Use Type: marijuana Exam Initial Vital Signs Initial Vital Signs: Vital Signs Temperature 98.6 F 04/15/24 16:43 Pulse Rate 90 04/15/24 16:43 Respiratory Rate 18 04/15/24 16:43 Blood Pressure 132/74 04/15/24 16:43 Pulse Oximetry 100 04/15/24 16:43 Oxygen Delivery Method Room Air 04/15/24 16:43 Const: Awake, alert, no acute distress, nontoxic appearing MSK: BECKY drain in anterior right thigh, not currently holding suction Skin: Warm, Dry, intact, no rashes, no erythema, no fluctuance, no induration Neuro: AO x3, CN II-XII grossly intact, moves all extremities Course Orders Ordered: Discontinued Medications Acetaminophen (Acetaminophen 325 Mg Tablet) 650 mg PO NOW ONE Stop: 04/15/24 16:57 Last Admin: 04/15/24 17:05 Dose: 650 mg Documented By: RB Oxycodone HCl (Oxycodone Ir 5 Mg Tablet) 5 mg PO NOW ONE Stop: 04/15/24 16:57 Last Admin: 04/15/24 17:05 Dose: 5 mg Documented By: RB Vital Signs Vital signs: Vital Signs - 8 hr 04/15/24 22:33 Pulse Rate 69 Respiratory Rate 18 Blood Pressure 131/74 Pulse Oximetry 100 Oxygen Delivery Method Room Air MDM - Extremity (Nontraumatic) MDM Narrative Medical decision making narrative: Possible dislodged BECKY drain. The Tegaderm dressings are loose on the skin and it appears as though 1 of the sutures has been loosened. Nursing staff was able to clean the margins of the BECKY drain and cleanse the surrounding area with Betadine and normal saline. A make shift AirSeal device was applied to the leg with return of suction from the BECKY drain, however patient stated that it was not draining ?as much? as it did before the suction stopped working. Patient did have a wet, macerated chlorhexidine disk around the drain taht was removed. Patient reported concern that a disc was not reapplied, we do not currently have chlorhexidine discs available, however we do have Tegaderm that are impregnated with chlorhexidine. Patient declined to have the dressing changed again stating he would just follow up in 2 days with his oncologist. ED return precautions discussed at [facility]. Discharge Plan Departure Patient Disposition: Home Clinical Impression: Drainage from surgical wound Instructions: DI for Sarath-Lugo Drains Activity Restrictions/Additional Instructions: Keep the dressing in place. Follow up as scheduled with your surgical team at [facility] Stand Alone Forms: Patient Portal/API
--- NOTE | 2024-04-15 22:30 | PC.NURSE ---
The patient came into the ED complaining that his wound vac was no longer keeping suction. He stated that he removed the morena bandage that he was instructed to keep on. He stated that he accidently pulled on his drain and felt like maybe he pulled it out too far since it wasn't holding suction after he pulled on it. He had two dressings over the site that the were placed over the top of his surgical site and drain that he had placed from his personal supply. The dressings were not holding suction and were removed to assess the skin around the surgical site. The skin was free of redness, swelling, purulent drainage and the surgical site was exposed to see two 1/4 steri type strips over it. The wound was well approximated and also free from signs of localized infection. The knee felt more swollen when compared to his other knee. The skin around the drain site was cleaned with normal saline and diluted betadine solution and redressed in a sterile fashion using tegarderm style dressings. The drain line had been pulled out by the patient enough to expose the drain aspect of drain tubing and the tubing was wrapped with an occlusive style dressing. A new BECKY bulb was placed and suction of the BECKY bulb was reestablished. The morena was reapplied. Provider aware and approved the dressing.
[2024-04-15 22:33] VITALS: BP 131/74; PULSE 69; RESP 18; O2SAT 100
--- NOTE | 2024-04-15 22:36 | PC.NURSE ---
Patient's wound was cleaned in a sterile fashion and redressed with CHG tegaderm with attempt to attain good seal. BECKY bulb changed and still the device still has trouble holding suction. It was recommended that he follow up with his surgical team tomorrow to determine next steps.
== END 2024-04-15 22:32 | disposition home or self-care (01) ==
PROVIDERS: Emergency Provider Emergency Medicine
DX: Z48.817 Encounter for surgical aftercare following surgery on the skin and subcutaneous tissue (principal)
CPT/HCPCS: 73552; 99283

== ENCOUNTER 2024-07-28 13:11 | Emergency (ER) | payer OTHER, MEDICAID, SELFPAY ==
[2024-07-28] VITALS (11 sets, daily range): BP systolic 144–166; BP diastolic 85–96; PULSE 70–83; RESP 16–18; TEMP 36.8; O2SAT 98–100; BMI 28.5
[2024-07-28 14:40] LABS: Lactate (Lactic Acid) 2.5 mmol/L (0.7-2.1)
[2024-07-28 14:42] LABS: Alanine Aminotransferase 26 IU/L (<50); Albumin 4.6 g/dL (3.5-5.0); Albumin Globulin Ratio 1.2 (1.0-2.8); Alkaline Phosphatase 127 U/L (38-126); Aspartate Aminotransferase 30 IU/L (17-59); BUN Creatinine Ratio 11.4 (6-22); Bilirubin Total 0.5 mg/dL (0.2-1.3); Blood Urea Nitrogen 9 mg/dL (9-20); C-Reactive Protein Quant 1.6 mg/dL (<1.0); Calcium 9.4 mg/dL (8.4-10.2); Carbon Dioxide 26 mmol/L (22-32); Chloride 99 mmol/L (98-107); Estimated Glomerular Filt Rate > 60 mL/min (>60); Glucose 99 mg/dL (70-100); HEMOLYSIS < 15 (0-50); Potassium 3.9 mmol/L (3.4-5.1); Sodium 138 mmol/L (137-145); Total Protein 8.6 g/dL (6.3-8.2)
[2024-07-28 14:43] LABS: Add Manual Diff / Slide Review NO; Basophils Absolute Auto 100 /uL (0-100); Basophils Percent Auto 1.1 % (0-2); Eosinophils Absolute Auto 0 /uL (0-450); Eosinophils Percent Auto 0.2 % (2-4); Hematocrit 39.3 % (41-53); Hemoglobin 12.6 g/dL (13.5-17.5); Lymphocytes Absolute Auto 1600 /uL (1100-4500); Lymphocytes Percent Auto 17.8 % (25-40); Mean Corpuscular Hemoglobin 24.1 PG (26-34); Mean Corpuscular Volume 75.5 fL (80-100); Monocytes Absolute Auto 700 /uL (0-900); Monocytes Percent Auto 7.9 % (3-14); Neutrophils Absolute Auto 6500 /uL (1500-7000); Platelet Count 414 X10^3/uL (150-400); Red Cell Distribution Width 16.1 % (11.6-14.8); White Blood Cell Count 8.9 X10^3/uL (4.5-11.0)
[2024-07-28 14:50] LABS: Erythrocyte Sedimentation Rate 48 MM/HR (0-15)
--- NOTE | 2024-07-28 15:31 | ED.EXTPRO ---
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 He is here because he has inguinal groin pain. He was concern for for hernia. He denies any bulge he has no testicular pain or swelling. No changes in bowel or bladder habits. No nausea or vomiting. He reports that since surgery in March he has had ongoing swelling in his knee. He wears a sleeve. He has been told that he needs to strengthen his hip that his hip does not pop out has been working on it. He started back to work in June he knows that he has been walking and pivoting and being more active. He is walking his dogs as well. His knee is always swollen. Since he started back at work a month ago he has had increasing pain he has been taking methocarbamol which he says finally helped with his pain. He has not had fever sweats or chills. He has been able to get around without any sort of issue. Today he went to his primary care provider's office and was concern for knee swelling and some mild redness. Patient reports that it has not anymore red and the swelling has actually gone down. Related Data Home Medications Medication Instructions Recorded Confirmed ibuprofen 600 mg tablet 600 mg PO Q6H PRN Pain (Scale 01/05/24 01/05/24 Score 7-10) Allergies Allergy/AdvReac Type Severity Reaction Status Date / Time No Known Drug Allergies Allergy Verified 07/28/24 13:29 Patient History Medical History Lytic bone lesion of right femur Hepatitis C Cellulitis of right arm Burn of right upper extremity Social History Smoking Status: Former smoker Smoking Status: Former smoker alcohol intake frequency: 0-2 drinks per day Substance Use Type: marijuana Exam Initial Vital Signs Initial Vital Signs: Vital Signs Temperature 98.2 F 07/28/24 13:29 Pulse Rate 73 07/28/24 13:29 Respiratory Rate 16 07/28/24 13:29 Blood Pressure 144/96 H 07/28/24 13:29 Pulse Oximetry 99 07/28/24 13:29 Oxygen Delivery Method Room Air 07/28/24 13:29 GENERAL: Well-appearing, well-nourished and in no acute distress. HEENT: Head atraumatic,EOMI, pupils reactive, face symmetric, moist mucous membranes CARDIOVASCULAR: Regular rate and rhythm without murmurs, rubs or gallops. RESPIRATORY: Breath sounds equal bilaterally, no wheezes rales or rhonchi. ABDOMEN: Soft, nontender. Normoactive bowel sounds all 4 quadrants. No guarding or rebound. : No inguinal bulge or pain he is tender right along his inguinal ligament which is tight no hernia appreciated EXTREMITIES: Normal range of motion, no clubbing or edema. Neurovascularly intact Right knee swollen he is able to flex and extend he is distal pedal pulse small area medially that is mildly erythematous. Incision site appears healed NEUROLOGICAL: Alert and oriented x4.Normal gait and speech. Cranial nerves II through XII grossly intact. SKIN: Warm, dry, no laceration, no petechiae, no rashes or lesions. Right knee medially he has 1 patch of erythema that is blanchable. Course Orders Ordered: ED Orders 07/28/24 14:15 C-Reactive Protein Quant Stat Complete Blood Count AUTO DIFF Stat Comprehensive Metabolic Panel Stat Erythrocyte Sedimentation Rate Stat Lactate (Lactic Acid) Stat Procalcitonin Stat 07/28/24 14:43 Blood Culture Stat 07/28/24 15:54 XR knee RT 3V Stat Vital Signs Vital signs: Vital Signs - 8 hr 07/28/24 13:29 07/28/24 14:21 07/28/24 14:22 Temperature 98.2 F Pulse Rate 73 71 Respiratory Rate 16 Blood Pressure 144/96 H 152/90 H Pulse Oximetry 99 98 Oxygen Delivery Method Room Air 07/28/24 14:22 07/28/24 14:30 07/28/24 14:30 Temperature Pulse Rate 73 73 Respiratory Rate Blood Pressure 154/91 H Pulse Oximetry 100 100 Oxygen Delivery Method 07/28/24 15:00 07/28/24 15:30 07/28/24 16:58 Temperature Pulse Rate 70 76 83 Respiratory Rate Blood Pressure 150/85 H Pulse Oximetry 99 99 98 Oxygen Delivery Method 07/28/24 16:59 07/28/24 16:59 07/28/24 17:00 Temperature Pulse Rate 80 Respiratory Rate Blood Pressure 159/95 H 158/92 H Pulse Oximetry 99 Oxygen Delivery Method 07/28/24 17:00 07/28/24 18:14 07/28/24 18:37 Temperature Pulse Rate 75 70 78 Respiratory Rate 18 16 Blood Pressure 160/91 H 166/96 H Pulse Oximetry 99 98 99 Oxygen Delivery Method Room Air MDM - Extremity (Nontraumatic) Lab Data 07/28/24 14:15 07/28/24 14:15 Labs: Lab Results 07/28/24 07/28/24 Range/Units 14:15 16:15 WBC 8.9 (4.5-11.0) X10^3/uL RBC 5.20 (4.5-5.9) X10^6/uL Hgb 12.6 L (13.5-17.5) g/dL Hct 39.3 L (41-53) % MCV 75.5 L (80-100) fL MCH 24.1 L (26-34) PG MCHC 32.0 (30-36) % RDW 16.1 H (11.6-14.8) % Plt Count 414 H (150-400) X10^3/uL Neut % (Auto) 73.0 (50-75) % Lymph % (Auto) 17.8 L (25-40) % [place] % (Auto) 7.9 (3-14) % Eos % (Auto) 0.2 L (2-4) % Baso % (Auto) 1.1 (0-2) % Neut # (Auto) 6500 (1537-1337) /uL Lymph # (Auto) 1600 (7736-9983) /uL [place] # (Auto) 700 (0-900) /uL Eos # (Auto) 0 (0-450) /uL Baso # (Auto) 100 (0-100) /uL ESR 48 H (0-15) MM/HR Sodium 138 (137-145) mmol/L Potassium 3.9 (3.4-5.1) mmol/L Chloride 99 (98-107) mmol/L Carbon Dioxide 26 (22-32) mmol/L BUN 9 (9-20) mg/dL Creatinine 0.79 (0.66-1.25) mg/dL Estimated GFR > 60 (>60) mL/min BUN/Creatinine Ratio 11.4 (6-22) Glucose 99 (70-100) mg/dL Lactate 2.5 H 1.0 (0.7-2.1) mmol/L Calcium 9.4 (8.4-10.2) mg/dL Total Bilirubin 0.5 (0.2-1.3) mg/dL AST 30 (17-59) IU/L ALT 26 (<50) IU/L Alkaline Phosphatase 127 H (38-126) U/L C-Reactive Protein 1.6 H (<1.0) mg/dL Total Protein 8.6 H (6.3-8.2) g/dL Albumin 4.6 (3.5-5.0) g/dL Globulin 4.0 (1.7-4.1) g/dL Albumin/Globulin Ratio 1.2 (1.0-2.8) Procalcitonin 0.030 (<0.5) ng/mL Imaging Data Extremity x-ray #1: Radiologist's Impression: PROCEDURE: XR KNEE RT 3V INDICATIONS: knee swelling and pain TECHNIQUE: 3 views of the knee were acquired. COMPARISON: [facility], CR, XR KNEE LT 3V, 01/02/2024, 18:49. FINDINGS: Bones: Interval resection of distal femoral condyles and replaced with instrumentation. Soft tissues: No joint effusion. No suspicious soft tissue calcifications. IMPRESSION: Distal femoral replacement with instrumentation in good position. No evidence of hardware failure. Approved by: Fab Lui M.D. on 07/28/2024 at 15:48 MDM Narrative Medical decision making narrative: MDM CC: Right groin pain Complicating co-morbidities: Recent chondrosarcoma in distal femur with replace Medical records reviewed: [facility] records have been reviewed Differential considered: Septic joint, inflammation inguinal hernia, DVT Exam documented above, pertinent findings include: Right knee is swollen however he full range of motion he has a very small area medially of mild erythema distal pedal pulse intact is not tender to touch he is afebrile Groin does not show any kind of bulging he is tender along his inguinal ligament but no concern for hernia Lab Test results independently reviewed as above. Pertinent findings: WBC 8.9, ESR 48 CRP 1.6 lactate 2.5 with repeat 1.0 without any fluids pain medications Electrolytes stable with normal creatinine Imaging studies independently reviewed: Hardware in place no loosening of hardware Consultations: [address]Sernando cartagena at [facility] updated patient's symptoms test results agrees no arthrocentesis indicated. Unlikely to be a septic joint without white count or fever. Recommends close outpatient follow-up and return as needed Treatments: None Re-evaluations: Patient getting very anxious given food. Discussion: Patient 44-year-old male presenting today with groin pain concern for hernia. No hernias appreciated on exam he has no bulging he is tender along was inguinal ligament without significant abnormality. He has no testicular pain. He was sent here to rule out septic joint. Actually low suspicion for septic joint he is afebrile he is weight-bearing he does have some mild erythema which patient reports is chronic. He does have an elevated ESR CRP, he had an elevated lactate as well which went down without any sort of intervention. Patient overall appears well nontoxic vitals are stable. Patient reports swelling ongoing since his surgery. He has no calf pain. He actually swelling has gone down over last week or so. I have reviewed [facility] records they have not done an ultrasound do not think it is necessary today since he has had swelling ongoing since surgery. He also reports swelling goes down when he wears his compression sleeve Patient is also given copy of his blood work today along with previous blood work that he had done including his hepatitis viral panel testing. Discharge Plan Departure Patient Disposition: Home Clinical Impression: Inguinal pain Activity Restrictions/Additional Instructions: *You have been diagnosed with inguinal pain *What to do: Things for waiting I did talk with Orthopedics today. If you are still having pain and issues with your hip and groin you may need to speak to your orthopedic oncologist. *Continue to take medications as directed *Follow up with your primary care provider in 2-3 days or call [phone] *Return to ER if you should have increasing pain redness fever inability to bear weight or any new, worsening or concerning symptoms Prescriptions: No Action ibuprofen 600 mg Tablet 600 mg PO Q6H PRN (Reason: Pain (Scale Score 7-10)) Referrals: Kira Salazar ARNP RN [Primary Care Provider] - Stand Alone Forms: Patient Portal/API
--- NOTE | 2024-07-28 15:54 | DI.RAD.S_ITS ---
PROCEDURE: XR KNEE RT 3V INDICATIONS: knee swelling and pain TECHNIQUE: 3 views of the knee were acquired. COMPARISON: [facility], CR, XR KNEE LT 3V, 01/02/2024, 18:49. FINDINGS: Bones: Interval resection of distal femoral condyles and replaced with instrumentation. Soft tissues: No joint effusion. No suspicious soft tissue calcifications. IMPRESSION: Distal femoral replacement with instrumentation in good position. No evidence of hardware failure. Approved by: Fab Lui M.D. on 07/28/2024 at 15:48
[2024-07-28 16:01] LABS: Reflexed Lactate in 2 Hours Y
== END 2024-07-28 18:45 | disposition home or self-care (01) ==
PROVIDERS: Emergency Provider Emergency Medicine; PCP Nurse Practitioner Family
DX: K40.90 Unilateral inguinal hernia, without obstruction or gangrene, not specified as recurrent (principal); M25.561 Pain in right knee
CPT/HCPCS: 36415; 73562; 80053; 83605; 84145; 85025; 85651; 86140; 87040; 99283; 99284

== ENCOUNTER → 2024-08-13 07:20 | Outpatient (CLI) | payer OTHER, MEDICAID, SELFPAY ==
--- NOTE | 2024-08-13 07:22 | DI.RAD.S_ITS ---
PROCEDURE: XR HIP W PEL IF DONE YAQUELIN MIN 4V INDICATIONS: RIGHT HIP PAIN TECHNIQUE: AP pelvis with lateral view(s) of the bilateral hip(s). COMPARISON: None. FINDINGS: Bones: No fractures or dislocations. Mild bilateral hip joint osteoarthritis. No evidence of avascular necrosis of femoral head. Pelvic ring appears intact. No suspicious bony lesions. Soft tissues: The visualized bowel gas pattern is normal. No suspicious soft tissue calcifications. IMPRESSION: Mild symmetric appearing bilateral hip joint osteoarthritis. No pelvic or hip fracture. No evidence of avascular necrosis. Dictated by: Pj Maloney M.D. on 08/13/2024 at 8:14 Approved by: Pj Maloney M.D. on 08/13/2024 at 8:14
== END ==
PROVIDERS: PCP Nurse Practitioner; Referring Provider Physical Medicine & Rehabilitation; Visit Provider Physical Medicine & Rehabilitation
DX: M25.551 Pain in right hip (principal); M16.0 Bilateral primary osteoarthritis of hip
CPT/HCPCS: 73522; 99214

== ENCOUNTER 2024-12-12 19:59 | Emergency (ER) | payer OTHER, MEDICAID, SELFPAY ==
[2024-12-12 20:03] VITALS: BP 137/80; PULSE 89; RESP 18; TEMP 37.1; O2SAT 99; BMI 26.4
--- NOTE | 2024-12-12 20:53 | ED_ITS ---
HPI - Recheck/Abnormal Lab/Rx General Chief Complaint: Recheck/Abnormal Lab/Rx Stated Complaint: ampicillin infusion, meds not delivered Time Seen by Provider: 12/12/24 20:24 Source: patient Mode of arrival: Ambulatory History of Present Illness HPI narrative: 44-year-old male here for refill of Ampicillin continuous infusion bag. He reports diagnosis of chondrosarcoma grade 3 distal right femur, had surgical excision March 2024, with knee joint replacement that subsequently became infected, October 2024 underwent knee joint replacement procedure [facility], has drain in place that is to be removed tomorrow this Tuesday at [facility], ongoing PICC line infusions of IV ampicillin (bag regimen indicates 12 g/600 mL, 12 g over 24 hours for rate of 24.9 mL/hour). He has about 1 or 2 hours left on his current infusion and unfortunately did not receive his replacement bag today, here for IV ampicillin infusion refill. Related Data Home Medications Medication Instructions Recorded Confirmed naproxen 250 mg tablet 250 mg PO BID PRN 08/13/24 08/13/24 Previous Rx's Medication Instructions Recorded meloxicam 15 mg tablet 15 mg PO DAILY #30 tabs 08/13/24 Allergies Allergy/AdvReac Type Severity Reaction Status Date / Time No Known Drug Allergies Allergy Verified 08/13/24 07:50 Patient History Medical History Femoral acetabular impingement Osteosarcoma Osteochondroma Degenerative joint disease of right hip Lytic bone lesion of right femur Hepatitis C Cellulitis of right arm Burn of right upper extremity Surgical History History of surgery on lower extremity Social History Smoking Status: Former smoker Smoking Status: Former smoker alcohol intake frequency: 0-2 drinks per day Exam Narrative Exam Narrative: GENERAL: Well-developed patient, in mild distress. HEAD: Atraumatic. Normocephalic. EYES: Pupils equal round and reactive. Extraocular motions intact. No scleral icterus. No injection or drainage. ENT: Nose without bleeding, purulent drainage. Throat without erythema, tonsillar hypertrophy or exudate. Airway patent. NECK: Trachea midline. Non tender CARDIOVASCULAR: Regular rate and rhythm without murmurs, gallops, or rubs. RESPIRATORY: Clear to auscultation. Breath sounds equal bilaterally. No wheezes, rales, or rhonchi. GASTROINTESTINAL: Abdomen soft, non-tender, nondistended. EXTREMITIES: Right thigh with well-healed midline scars anterior thigh and over above and below knee, drain in place under dressing, no gross swelling obvious to leg. Has right upper arm PICC line. BACK: Nontender without deformity or crepitance. No flank tenderness. NEURO: AOx3. Motor functions grossly nonfocal SKIN: No rash or erythema of visible areas Initial Vital Signs Initial Vital Signs: Vital Signs Temperature 98.8 F 12/12/24 20:03 Pulse Rate 89 12/12/24 20:03 Respiratory Rate 18 12/12/24 20:03 Blood Pressure 137/80 12/12/24 20:03 Pulse Oximetry 99 12/12/24 20:03 Oxygen Delivery Method Room Air 12/12/24 20:03 Course Orders Ordered: Discontinued Medications Ampicillin Sodium 12,000 mg/ (Sodium Chloride) 600 mls @ 25 mls/hr IV NOW Stop: 12/12/24 23:59 Vital Signs Vital signs: Vital Signs - 8 hr 12/12/24 20:03 12/12/24 22:11 Temperature 98.8 F 98.4 F Pulse Rate 89 82 Respiratory Rate 18 16 Blood Pressure 137/80 140/81 Pulse Oximetry 99 99 Oxygen Delivery Method Room Air Room Air MDM - Recheck/Abnormal Lab/Rx MDM Narrative Medical decision making narrative: 45-year-old male with complicated course right distal femur chondrosarcoma, status post excision March 2024, subsequent knee replacement that became infected, additional surgery October 2023, ongoing IV PICC line infusion of ampicillin continuous infusion (2 g over 24 hours in the 600 cc bag). Current infusion bag has about 1 or 2 hours left, did not receive his replacement refill today. Here for replacement/refill of his ampicillin infusion. Afebrile, sirs screen negative, drain in place to be removed this Tuesday by IR at [facility]. RN and pharmacy communicated, they are able to make a compatible solution ampicillin 2g in 600 cc bag replacement Follow up with his care providers in [place] advised. Continue IV infusion therapy as planned. Discharge Plan Departure Patient Disposition: Home Clinical Impression: Medication refill, Infection of joint, History of chondrosarcoma Activity Restrictions/Additional Instructions: Mr Seymour, You have complex history of distal femur chondrosarcoma, diagnosed last year, with subsequent excision and joint replacement that became infected, ongoing IV PICC line infusion of ampicillin (bag regimen indicates ampicillin 2 g infusion over 24 hours in a 600 cc bag), awaiting drainage catheter removal by Interventional Radiology at [facility] this Tuesday, unfortunately near your current bag of ampicillin infusion you do not have an available replacement bag, as it apparently had not arrived as planned. Pharmacy did ampicillin replacement bag here, continue your replacement bags and infusion in follow up plan with your [facility] providers. Thank you for allowing our team to evaluate you today. Prescriptions: No Action naproxen 250 mg tablet 250 mg PO BID PRN Hold Instructions: Home Medication placed on hold at Doctor's office meloxicam 15 mg tablet 15 mg PO DAILY Qty: 30 2RF Referrals: Lizbeth Payton ARNP [Primary Care Provider] - Stand Alone Forms: Patient Portal/API/Survey
--- NOTE | 2024-12-12 22:07 | PC.NURSE ---
Ampicillin delivered by Pharmacist, order in the computer but does not show up in the MAR. Verified order with Pharmacist and 5 rights with pt. Bag spiked using clean technique, swabbed with alcohol wipes and bag burped of all air. Pt verified pump settings at 24.9ml/hr.
[2024-12-12 22:11] VITALS: BP 140/81; PULSE 82; RESP 16; TEMP 36.9; O2SAT 99
== END 2024-12-12 22:13 | disposition home or self-care (01) ==
PROVIDERS: Emergency Provider Emergency Medicine; PCP Nurse Practitioner
DX: Z76.0 Encounter for issue of repeat prescription (principal); T84.53XA Infection and inflammatory reaction due to internal right knee prosthesis, initial encounter; Z85.89 Personal history of malignant neoplasm of other organs and systems; Z87.891 Personal history of nicotine dependence
CPT/HCPCS: 99281; J0290

== ENCOUNTER 2025-10-23 07:09 | Emergency (ER) | payer OTHER, SELFPAY ==
[2025-10-23] VITALS (8 sets, daily range): BP systolic 137–174; BP diastolic 88–98; PULSE 63–81; RESP 14–17; TEMP 36.6; O2SAT 97–100; BMI 28.5
--- NOTE | 2025-10-23 07:25 | EKG_ITS ---
[address] [address] Test Date: 2025-10-23 Pat Name: Bandar Seymour Department: [facility] Room: Gender: Male [employer] Operator: CHOLO : 1980 Requested By: Order Number: [id number] Reading MD: Daniel Sparks Measurements Intervals [place] Rate: 65 P: 66 HI: 192 QRS: 17 QRSD: 94 T: 40 QT: 384 QTc: 399 Interpretive Statements Normal sinus rhythm Electronically Signed On 10-23-2025 15:06:35 PST by Daniel Sparks
--- NOTE | 2025-10-23 07:25 | DI.RAD.S_ITS ---
PROCEDURE: XR CHEST 1V INDICATIONS: Chest Pain TECHNIQUE: One view of the chest was acquired. COMPARISON: None. FINDINGS: Surgical changes and devices: None. Lungs and pleura: Lungs are clear. No pleural effusions or pneumothorax. Mediastinum: Mediastinal contours appear normal. Heart size is normal. Bones and chest wall: No suspicious bony lesions. Overlying soft tissues appear unremarkable. IMPRESSION: No acute cardiopulmonary abnormality is seen. Approved by: Mann Ponce M.D. on 10/23/2025 at 7:59
[2025-10-23 07:39] LABS: Add Manual Diff / Slide Review NO; Hematocrit 45.4 % (41-53); Hemoglobin 15.4 g/dL (13.5-17.5); Lymphocytes Absolute Auto 2300 /uL (1100-4500); Mean Corpuscular HGB Conc 33.9 % (30-36); Mean Corpuscular Hemoglobin 29.5 PG (26-34); Mean Corpuscular Volume 87.1 fL (80-100); Platelet Count 253 X10^3/uL (150-400)
[2025-10-23 07:48] LABS: Alanine Aminotransferase 50 IU/L (<50); Albumin 4.5 g/dL (3.5-5.0); Albumin Globulin Ratio 1.4 (1.0-2.8); Alkaline Phosphatase 67 U/L (38-126); Blood Urea Nitrogen 10 mg/dL (9-20); Calcium 8.7 mg/dL (8.4-10.2); Carbon Dioxide 24 mmol/L (22-32); Chloride 102 mmol/L (98-107); Creatine Kinase 66 U/L (55-170); Estimated Glomerular Filt Rate > 60 mL/min (>60); Globulin 3.2 g/dL (1.7-4.1); Glucose 119 mg/dL (70-99); HEMOLYSIS 22 (0-50); Lipase 90 U/L (23-300); Magnesium 1.8 mg/dL (1.6-2.3); Potassium 4.3 mmol/L (3.4-5.1); Sodium 137 mmol/L (137-145); Total Protein 7.7 g/dL (6.3-8.2)
[2025-10-23 07:49] LABS: INR 0.9 (0.9-1.3); Prothrombin Time 10.0 SECONDS (9.4-12.5)
--- NOTE | 2025-10-23 07:49 | ED.DIZZY ---
HPI - Dizziness General Chief Complaint: Dizziness Stated Complaint: Vertigo, High blood pressure this morning Time Seen by Provider: 10/23/25 07:27 Source: patient and family Mode of arrival: Family Vehicle History of Present Illness HPI Narrative: Patient is a 45-year-old man who presents with dizziness and vertigo this morning. 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 Patient states that he was binge drinking last night woke up feeling dizzy with vertigo. He states that this has happened in the past before when his blood pressure was high. Patient ambulated independently to the ER for further management. Denies any chest pain, dyspnea, diaphoresis. No fevers, chills, nausea, vomiting. No focal neurologic deficits, vision changes. Related Data Home Medications ?Medication ?Instructions ?Recorded ?Confirmed naproxen 250 mg tablet 250 mg PO BID PRN 08/13/24 08/13/24 Held on 08/13/24. Instructions: Home Medication placed on hold at Doctor's office Previous Rx's ?Medication ?Instructions ?Recorded meloxicam 15 mg tablet 15 mg PO DAILY #30 tabs 08/13/24 Allergies Allergy/AdvReac Type Severity Reaction Status Date / Time No Known Drug Allergies Allergy Verified 10/23/25 07:33 Review of Systems Review of Systems ROS Unobtainable: All systems reviewed & are unremarkable except as noted in HPI and below Patient History Medical History Femoral acetabular impingement Osteosarcoma Osteochondroma Degenerative joint disease of right hip Lytic bone lesion of right femur Hepatitis C Cellulitis of right arm Burn of right upper extremity Surgical History History of surgery on lower extremity Social History Smoking Status: Current every day smoker Smoking Status: Current every day smoker tobacco type: cigarettes alcohol intake frequency: 0-2 drinks per day Alcohol type: beer Exam Narrative Exam Narrative: Vitals:? Afebrile, tachycardic, all other vitals within normal range. Gen:? Well-developed, well-nourished, no acute distress Cards:? Regular, no murmurs, rubs, gallops Pulm:? No increased work of breathing, and expiratory wheezing in upper lobes Abd:? Soft, nondistended, nontender Ext:? No peripheral edema in bilateral lower extremity Neuro:? A&O x4, CN II-XII intact, 5/5 strength in flexion and extension, dorsi/plantar flexion, sensation intact throughout, normal gait. Psych:? Appropriate Initial Vital Signs Initial Vital Signs: Vital Signs Pulse Rate 76 10/23/25 07:25 Pulse Oximetry 100 10/23/25 07:25 Course Orders Ordered: ED Orders 10/23/25 07:25 XR chest 1V Stat Complete Blood Count AUTO DIFF Stat Comprehensive Metabolic Panel Stat Lipase Stat Magnesium Stat NT-proBNP (BNP-Adult 18+) Stat PTT Partial Thromboplastin Adrián Stat Prothrombin Time INR Stat Troponin & CK Cardiac Panel Stat EKG-12 Lead Stat Vital Signs Vital signs: Vital Signs - 8 hr 10/23/25 07:25 10/23/25 07:30 10/23/25 07:33 Temperature 97.9 F Pulse Rate 76 69 64 Respiratory Rate 17 Blood Pressure 174/98 H Pulse Oximetry 100 100 98 Oxygen Delivery Method Room Air 10/23/25 07:41 10/23/25 07:41 10/23/25 08:00 Temperature Pulse Rate 66 Respiratory Rate Blood Pressure 165/96 H 155/93 H Pulse Oximetry 99 Oxygen Delivery Method 10/23/25 08:00 10/23/25 08:30 10/23/25 08:30 Temperature Pulse Rate 76 65 Respiratory Rate Blood Pressure 137/88 Pulse Oximetry 99 98 Oxygen Delivery Method 10/23/25 09:00 10/23/25 09:00 Temperature Pulse Rate 63 Respiratory Rate Blood Pressure 144/93 H Pulse Oximetry 97 Oxygen Delivery Method MDM - Dizziness Lab Data 10/23/25 07:25 10/23/25 07:25 Labs: Lab Results 10/23/25 Range/Units 07:25 WBC 8.1 (4.5-11.0) X10^3/uL RBC 5.22 (4.5-5.9) X10^6/uL Hgb 15.4 (13.5-17.5) g/dL Hct 45.4 (41-53) % MCV 87.1 (80-100) fL MCH 29.5 (26-34) PG MCHC 33.9 (30-36) % RDW 13.6 (11.6-14.8) % Plt Count 253 (150-400) X10^3/uL Neut % (Auto) 58.0 (50-75) % Lymph % (Auto) 28.1 (25-40) % Tift % (Auto) 10.8 (3-14) % Eos % (Auto) 2.1 (2-4) % Baso % (Auto) 1.0 (0-2) % Neut # (Auto) 4700 (1493-3674) /uL Lymph # (Auto) 2300 (0511-5303) /uL Tift # (Auto) 900 (0-900) /uL Eos # (Auto) 200 (0-450) /uL Baso # (Auto) 100 (0-100) /uL PT 10.0 (9.4-12.5) SECONDS INR 0.9 (0.9-1.3) APTT 31 (25.1-36.5) SECONDS Sodium 137 (137-145) mmol/L Potassium 4.3 (3.4-5.1) mmol/L Chloride 102 (98-107) mmol/L Carbon Dioxide 24 (22-32) mmol/L BUN 10 (9-20) mg/dL Creatinine 0.82 (0.66-1.25) mg/dL Estimated GFR > 60 (>60) mL/min BUN/Creatinine Ratio 12.2 (6-22) Glucose 119 H (70-99) mg/dL Calcium 8.7 (8.4-10.2) mg/dL Magnesium 1.8 (1.6-2.3) mg/dL Total Bilirubin 0.4 (0.2-1.3) mg/dL AST 46 (17-59) IU/L ALT 50 H (<50) IU/L Alkaline Phosphatase 67 (38-126) U/L Total Creatine Kinase 66 (55-170) U/L Troponin I < 0.012 (0.01-0.034) ng/mL NT-Pro-B Natriuret Pep < 20 (<125) pg/mL Total Protein 7.7 (6.3-8.2) g/dL Albumin 4.5 (3.5-5.0) g/dL Globulin 3.2 (1.7-4.1) g/dL Albumin/Globulin Ratio 1.4 (1.0-2.8) Lipase 90 (23-300) U/L Imaging Data Chest x-ray: Radiologist's Impression: PROCEDURE: XR CHEST 1V INDICATIONS: Chest Pain TECHNIQUE: One view of the chest was acquired. COMPARISON: None. FINDINGS: Surgical changes and devices: None. Lungs and pleura: Lungs are clear. No pleural effusions or pneumothorax. Mediastinum: Mediastinal contours appear normal. Heart size is normal. Bones and chest wall: No suspicious bony lesions. Overlying soft tissues appear unremarkable. IMPRESSION: No acute cardiopulmonary abnormality is seen. MDM Narrative Medical decision making narrative: 45-year-old man presents with 1 day history of dizziness after a night of drinking. EMR Review: Reviewed ER note on 02/09/2024 when patient presented with dizziness. Differential diagnosis: BPPV, labyrinthitis, vestibular neuritis, anemia, alcohol intoxication, metabolic to include hypoglycemia or any other electrolyte abnormalities, less likely cerebellar stroke, vertebral artery dissection, CVA. Labs: CBC without leukocytosis, left shift, anemia, platelets normal. Coags normal. CMP normal without any evidence of dehydration, normal creatinine and GFR. ALT mildly elevated at 50. Troponin negative. BNP negative. Images: None. EK normal sinus rhythm, HR 65, CO 190, QRS 94, QTc 399, no left axis deviation, no ectopy, no evidence of ischemia. Consults: None. ED Course: The patient remained hemodynamically stable throughout the ED stay with improvement in dizziness after supportive care. Neurologic exam remained nonfocal, and workup was reassuring with no evidence of cardiac ischemia, significant metabolic abnormality, or central neurologic process. I discussed the results, expected course, and return precautions with the patient. He expressed understanding and agreement with the plan. Given his improvement and low suspicion for serious pathology, discharge home with outpatient follow?up is appropriate. Patient advised to rest, hydrate, avoid further alcohol use, and rise slowly from sitting or lying positions. He was instructed to return immediately for worsening dizziness, new weakness, numbness, difficulty walking, severe headache, vision changes, chest pain, shortness of breath, persistent vomiting, or any other concerning symptoms. Recommended follow?up with primary care within the next few days for reassessment and to review today?s results. Discharge Plan Departure Patient Disposition: Home Clinical Impression: Light-headed Activity Restrictions/Additional Instructions: You were seen in the emergency department for lightheadedness and vertigo. In the ER: -- In the ER, your blood pressure was elevated. You were observed until your blood pressure was lowered and your symptoms improved. Plan: -- Follow up with your primary care physician to continue to monitor your blood pressure - Rreturn to the ER if you develop any new or worsening symptoms to include any neurologic deficits such as weakness, numbness, tingling, vision changes, or any other concerning signs or symptoms. Prescriptions: No Action naproxen 250 mg tablet 250 mg PO BID PRN meloxicam 15 mg tablet 15 mg PO DAILY Qty: 30 2RF Referrals: Lizbeth Payton ARNP [Primary Care Provider, Internal Medicine] Stand Alone Forms: Patient Portal/API
[2025-10-23 07:52] LABS: PTT Partial Thromboplastin Tim 31 SECONDS (25.1-36.5)
[2025-10-23 07:59] LABS: NT-proBNP (BNP-Adult 18+) < 20 pg/mL (<125); Troponin I < 0.012 ng/mL (0.01-0.034)
== END 2025-10-23 09:57 | disposition home or self-care (01) ==
PROVIDERS: Emergency Provider Student in an Organized Health Care Education/Training Program; PCP Nurse Practitioner
DX: R42 Dizziness and giddiness (principal); I10 Essential (primary) hypertension
CPT/HCPCS: 36415; 71045; 80053; 82550; 83690; 83735; 83880; 84484; 85025; 85610; 85730; 93005; 99283; 99284